=== PATIENT | male | born 1955 | race Caucasian/White ===

== ENCOUNTER 2024-08-10 08:33 | Outpatient (CLI) | payer OTHER ==
[2024-08-10] MEDS ORDERED: Iopamidol 370 76% 100 ML VIAL ONE (10:08)
== END 2024-08-10 08:34 | disposition home or self-care (01) ==
LOC: BICCT 08:33
PROVIDERS: ATTEND Student in an Organized Health Care Education/Training Program
DX: F17.211 Nicotine dependence, cigarettes, in remission (principal)
CPT/HCPCS: 71271; Q9967